=== PATIENT | female | born 1990 | race Two or more races ===

== ENCOUNTER 2017-11-15 07:02 | Inpatient (IN) | payer OTHER ==
[~2017-11-15] VITALS: Ht 152.4 cm; Wt 61.0 kg
[2017-11-15 07:21] LABS: BASOPHIL (%) 0.5 % (0-1); EOSINOPHIL (%) 0.8 % (0-5); EOSINOPHIL COUNT 0.1 K/uL (0-0.3); HEMATOCRIT 34.5 % (36.0-46.0); HEMOGLOBIN 11.8 G/DL (11.9-15.5); IMMATURE GRANULOCYTE (%) 0.2 % (0.0-0.7); LYMPHOCYTE (%) 31.4 % (15-42); MCH 30.5 PG (29.0-34.0); MCHC 34.2 G/DL (30.0-36.0); MCV 89.1 FL (83-99); MONOCYTE (%) 4.6 % (3-12); MONOCYTE COUNT 0.3 K/uL (0-0.8); NEUTROPHIL (%) 62.5 % (45-76); NEUTROPHIL COUNT 3.9 K/uL (1.8-6.4); PLATELET COUNT 185 K/uL (156-360); RBC DIS.WIDTH-CV 11.4 % (11.8-14.6); RBC DIS.WIDTH-SD 36.9 % (39-53); RED BLOOD COUNT 3.87 M/uL (3.80-5.20); WHITE BLOOD COUNT 6.3 K/uL (4.1-10.2)
[2017-11-15 07:56] LABS: QUANTITATIVE HCG < 4.0 MIU/ML
[2017-11-15 08:28] LABS: AMYLASE 39 IU/L (1-118); CHLORIDE 107 MEQ/L (99-109); CREATININE 0.7 MG/DL (0.6-1.3); GFR ESTIMATE (CALCULATED) > 59 mL/min/; GLUCOSE 151 mg/dL (70-99); LIPASE 37 U/L (1.0-51.0); POTASSIUM 3.2 MEQ/L (3.7-5.4); SERUM ETHYL ALCOHOL < 10 mg/dL; SODIUM 139 MEQ/L (136-147); UREA NITROGEN (BUN) 15 mg/dL (9-23)
[2017-11-15 08:34] LABS: APPEARANCE CLEAR ((CLEAR)); BILIRUBIN NEGATIVE; BLOOD MODERATE; COLOR YELLOW ((YELLOW)); GLUCOSE (STRIP) NEGATIVE; KETONES NEGATIVE; LEUKOCYTES NEGATIVE; NITRITE NEGATIVE; PROTEIN (STRIP) NEGATIVE; UROBILINOGEN 0.2 MG/DL (0.2-1.0)
[2017-11-15 08:44] LABS: BACTERIA NONE SEEN /HPF; EPITHELIAL CELLS RARE /HPF; MUCUS TRACE /LPF; UCUL ADDED? NO; WHITE BLOOD CELLS 0-5 /HPF (0-5)
[2017-11-15 08:48] LABS: SPECIFIC GRAVITY 1.073 (1.000-1.030)
[2017-11-15 09:21] LABS: AMPHETAMINE NEGATIVE (500 ng/mL); BARBITURATES NEGATIVE (200 ng/mL); BENZODIAZEPINES NEGATIVE (150 ng/mL); BUPRENORPHINE NEGATIVE (10 ng/mL); COCAINE NEGATIVE (150 ng/mL); METHADONE NEGATIVE (200 ng/mL); METHAMPHETAMINE NEGATIVE (500 ng/mL); OPIATES (MORPHINE) NEGATIVE (100 ng/mL); OXYCODONE NEGATIVE (100 ng/mL); PHENCYCLIDINE NEGATIVE (25 ng/mL); PROPOXYPHENE NEGATIVE (300 ng/mL); THC CANNABINOIDS NEGATIVE (50 ng/mL); TRICYCLIC ANTIDEPRESSANTS NEGATIVE (300 ng/mL)
[2017-11-15 13:30] VITALS: BP 119/66
[2017-11-15 15:35] VITALS: BP 102/56
[2017-11-15 19:39] VITALS: BP 131/58
[2017-11-15 23:54] VITALS: BP 123/53
[2017-11-16 04:25] VITALS: BP 113/72
[2017-11-16 06:03] LABS: HEMOGLOBIN 10.1 G/DL (11.9-15.5); MCH 31.1 PG (29.0-34.0); MCHC 34.8 G/DL (30.0-36.0); MCV 89.2 FL (83-99); PLATELET COUNT 159 K/uL (156-360); RBC DIS.WIDTH-CV 11.5 % (11.8-14.6); RBC DIS.WIDTH-SD 37.2 % (39-53); RED BLOOD COUNT 3.25 M/uL (3.80-5.20)
[2017-11-16 06:23] LABS: ALBUMIN 3.4 G/DL (3.2-4.8); ALKALINE PHOSPHATASE 22 IU/L (3-129); ALT (GPT) 13 IU/L (3-49); AST (GOT) 18 IU/L (2-34); CHLORIDE 110 MEQ/L (99-109); CREATININE 0.6 MG/DL (0.6-1.3); GFR ESTIMATE (CALCULATED) > 59 mL/min/; GLUCOSE 84 mg/dL (70-99); POTASSIUM 3.8 MEQ/L (3.7-5.4); SODIUM 141 MEQ/L (136-147); TOTAL BILIRUBIN 0.8 MG/DL (0.0-1.0); TOTAL PROTEIN 5.6 G/DL (6.4-8.3); UREA NITROGEN (BUN) 5 mg/dL (9-23)
[2017-11-16 08:23] VITALS: BP 99/55
[2017-11-16 10:58] VITALS: BP 106/61
[2017-11-16] MEDS ORDERED: HYDROCODON-ACE1 EAC7 PO (12:59)
[2017-11-16] MEDS ORDERED: ZOFRAN4 MG PO (12:59)
== END 2017-11-16 13:59 | disposition home or self-care (01) | DRG 200 ==
LOC: TRA 07:02 → EDOF 11:26 → ENRESERV 11:36 → 3EAST 13:23
PROVIDERS: Emergency Medicine; Student in an Organized Health Care Education/Training Program
PROC: 0HQGXZZ Repair Left Hand Skin, External Approach (ICD-10-PCS; principal; 2017-11-15)
DX: S27.0XXA Traumatic pneumothorax, initial encounter (principal); S22.41XA Multiple fractures of ribs, right side, initial encounter for closed fracture; S27.321A Contusion of lung, unilateral, initial encounter; S06.0X9A Concussion with loss of consciousness of unspecified duration, initial encounter; S61.219A Laceration without foreign body of unspecified finger without damage to nail, initial encounter; S61.412A Laceration without foreign body of left hand, initial encounter; V48.5XXA Car driver injured in noncollision transport accident in traffic accident, initial encounter; Y92.410 Unspecified street and highway as the place of occurrence of the external cause
CPT/HCPCS: 70450; 70486; 71046; 71260; 72125; 72129; 72132; 73130; 74177; 80048; 80053; 81003; 82150; 83690; 84702; 85025; 85027; 86850; 86900; 86901; 99281; 99285; G0480; J2270; J2405; J7120; S0028